=== PATIENT | female | born 1955 | race African-American/Black ===

== ENCOUNTER 2018-08-24 17:00 | Emergency (ER) | payer OTHER, BC ==
[2018-08-24 17:05] VITALS: BMI 36.9
--- NOTE | 2018-08-24 18:08 | PDOC ---
History of Present Illness - General Chief Complaint: Shortness of Breath Stated Complaint: DIFFICULTY BREATHING Time Seen by Provider: 08/24/18 17:38 - History of Present Illness Initial Comments: Julita Quiñones is a 63yo woman with a PMH of asthma, GERD, and chronic back pain who presents with 4 months of slightly increased SOB and mild pleuritic right lower chest pain. She reports that she has had asthma for many years, but she had a bad respiratory illness about 4 months ago, and she has been more SOB with walking than normal since that time. She was given an albuterol inhaler when seen in an OSH ED for the respiratory infection and referred to a revenue analyst, but she has been unable to see him yet. She has an appointment scheduled for 10 days from now. She uses her inhaler twice per day for SOB when walking to her car. Today, she had additional SOB when sitting in her car and was concerned. Ms Quiñones also reports that over the past 3-4 months she has had low right chest pain when she tries to take a very deep breath. The pain is located in both the front and the back. She mentioned it to her PMD and was told that it is due to her GERD. She has been taking vinegar and "digestive enzymes" at home for the reflux, but she states that it has been present for many years without any new changes. Her doctor told her to get a CXR, but she has not yet done so. Ms Quiñones denies any increased LE edema, weight gain, cough, fever/chills, wheezing, congestion, or any other recent symptoms. She has not been sick over the past 4 months. Past History - Past Medical History Allergies/Adverse Reactions: Allergies Allergy/AdvReac Type Severity Reaction Status Date / Time No Known Allergies Allergy Verified 08/24/18 17:05 Home Medications: Ambulatory Orders Albuterol Sulfate Inhaler - [Ventolin Hfa Inhaler -] 1 - 2 inh PO Q4H 08/24/18 Asthma: Yes COPD: No Other medical history: herniated discs - Suicide/Smoking/Psychosocial Hx Smoking History: Never smoked Substance Use Type: None Review of Systems - Review of Systems Comments:: General: No fevers, no chills, no weight or appetite change, no malaise HEENT: No changes in vision, no changes in hearing, no congestion, no sore throat CV: No chest pain, no palpitations, no LE edema Pulm: See HPI GI: No nausea or vomiting, no change in bowel habits, no melena : No frequency, no urgency, no dysuria Musc: No back pain, no joint swelling, no recent injury Skin: No rash, no lesions, no erythema Endo: No excessive thirst, no heat/cold intolerance Heme: No unusual bruising or bleeding, no swollen glands Neuro: No syncope, no numbness/tingling, no focal weakness Vasc: No claudication Psych: No recent change in mood, no SI or HI *Physical Exam - Vital Signs Last Vital Signs Temp Pulse Resp BP Pulse Ox 97.9 F 103 H 20 148/78 98 08/24/18 17:02 08/24/18 17:02 08/24/18 17:02 08/24/18 17:02 08/24/18 17:02 - Physical Exam Comments: General: Comfortable, no acute distress HEENT: PERRL, EOMI, MMM, voice normal, normal neck ROM, no LAD Cards: RRR, no murmur appreciated Pulm: Comfortable on room air, clear to auscultation bilaterally Abd: Soft, nontender, nondistended Ext: Atraumatic. No LE edema. ROM intact. Strength 5/5 and equal bilaterally Vasc: Extremities WWP Skin: Normal color, no rashes or lesions Neuro: A&Ox3, CN grossly intact, normal speech, motor/sensory grossly intact and symmetric Psych: Mood appropriate to situation ED Treatment Course - LABORATORY CBC & Chemistry Diagram: 08/24/18 14:22 08/24/18 14:22 - RADIOLOGY Radiology Studies Ordered: Category Date Time Status CHEST PA & LAT [RAD] Stat Radiology 08/24/18 18:07 Ordered Medical Decision Making - Medical Decision Making 08/24/18 18:09 Julita Quiñones is a 63yo woman with a PMH of asthma, GERD, and chronic back pain who presents with 4 months of slightly increased SOB and mild pleuritic right lower chest pain. She additionally reports abdominal bloating recently. - Benign exam. No abnormalities on lung exam. - CXR ordered to evaluate for abnormalities - Tachycardic on arrival. Will obtain EKG - Ddx includes GERD/gastritis, musculoskeletal pain, pancreatitis (reports taking digestive enzymes daily) - CBC, CMP, mag, phos, lipase, amylase 08/24/18 19:23 - Labs reviewed. Unremarkable. - EKG and CXR need to be completed. - Pt signed out to Dr Cruz for remainder of ED care. Discussed with Dr Quintero. Whitley Zarate PGY1 *DC/Admit/Observation/Transfer Diagnosis at time of Disposition: Mild shortness of breath - Referrals - Patient Instructions - Post Discharge Activity
--- NOTE | 2018-08-24 18:21 | PDOC ---
Attending Attestation - Resident Resident Name: Whitley Zarate - ED Attending Attestation I have performed the following: I have examined & evaluated the patient, The case was reviewed & discussed with the resident, I agree w/resident's findings & plan, Exceptions are as noted - HPI HPI: 08/24/18 18:47 63-year-old obese female presents today because of increased dyspnea. She has a long history of asthma and has had exertional dyspnea in the past. She chronically has to take her inhaler once in the morning and once in the evening because she has exertional dyspnea when she walks to her car. However, today she was just seated in her car and feeling like she was panting -her tanning consultant is She already has an appointment with her tanning consultant on August 03. she has a prescription for a chest radiograph and she came today to get an xray because her symptoms were worsening 08/24/18 18:59 - Physicial Exam PE: 08/24/18 19:27 63-year-old female presents in no acute distress. Head normocephalic/atraumatic. Neck supple, no bruits, no JVD. Lungs are clear to auscultation bilaterally CVS regular rate and rhythm S1, S2 Abdomen protuberant but nontender. Extremities no pitting edema. Skin is warm and dry. Psych appropriate. Neuro she is alert and oriented 3, ambulating with ease, no gross focal neural deficits. - Medical Decision Making 08/24/18 20:24 ekg nsr @ 86 bpm cxr no infiltrates,no ptx,no effusions appreciated labs reviewed 08/24/18 21:38 imp chronic intermittent dyspnea plan keep appt with tanning consultant
[2018-08-24 18:42] LABS: BASO % 0.7 % (0-2.0); EOS % 6.6 % (0-4.5); HEMATOCRIT 43.5 % (32.4-45.2); HEMOGLOBIN 14.1 GM/dL (10.7-15.3); LYMPH % 21.7 % (8-40); MCH 28.5 pg (25.7-33.7); MCHC 32.4 g/dl (32.0-36.0); MEAN CELL VOLUME 87.7 fl (80-96); MEAN PLT VOLUME 8.8 fl (7.5-11.1); MONO % 6.6 % (3.8-10.2); NEUT % 64.4 % (42.8-82.8); PLATELET COUNT 304 K/MM3 (134-434); RBC 4.96 M/mm3 (3.60-5.2); RDW 14.8 % (11.6-15.6); WHITE BLOOD COUNT 8.9 K/mm3 (4.0-10.0)
[2018-08-24 19:12] LABS: ALBUMIN 3.5 g/dl (3.4-5.0); ALK PHOS 120 U/L (45-117); AMYLASE 68 U/L (25-115); ANION GAP 6 MMOL/L (8-16); BILIRUBIN,TOTAL 0.3 mg/dL (0.2-1); BLOOD UREA NITROGEN 12 mg/dL (7-18); CALCIUM 9.5 mg/dL (8.5-10.1); CHLORIDE 106 mmol/L (98-107); CO2 28 mmol/L (21-32); GLUCOSE,RANDOM 106 mg/dL (74-106); LIPASE 141 U/L (73-393); MAGNESIUM 2.3 mg/dL (1.8-2.4); PHOSPHOROUS 3.3 mg/dL (2.5-4.9); POTASSIUM 4.2 mmol/L (3.5-5.1); SGOT/AST 18 U/L (15-37); SGPT/ALT 22 U/L (13-61); SODIUM 140 mmol/L (136-145); TOT PROT 7.3 g/dl (6.4-8.2)
--- NOTE | 2018-08-24 20:38 | PDOC ---
*Physical Exam - Vital Signs Last Vital Signs Temp Pulse Resp BP Pulse Ox 97.9 F 103 H 20 148/78 98 08/24/18 17:02 08/24/18 17:02 08/24/18 17:02 08/24/18 17:02 08/24/18 17:02 ED Treatment Course - LABORATORY CBC & Chemistry Diagram: 08/24/18 14:22 08/24/18 14:22 - ADDITIONAL ORDERS Additional order review: Laboratory Results 08/24/18 14:22 Sodium 140 Potassium 4.2 Chloride 106 Carbon Dioxide 28 Anion Gap 6 L BUN 12 Creatinine 1.0 Creat Clearance w eGFR 55.82 Random Glucose 106 Calcium 9.5 Phosphorus 3.3 Magnesium 2.3 Total Bilirubin 0.3 AST 18 ALT 22 Alkaline Phosphatase 120 H Creatine Kinase 163 Creatine Kinase Index 1.1 CK-MB (CK-2) 1.9 Troponin I < 0.02 Total Protein 7.3 Albumin 3.5 Total Amylase 68 Lipase 141 08/24/18 14:22 RBC 4.96 MCV 87.7 MCHC 32.4 RDW 14.8 MPV 8.8 Neutrophils % 64.4 Lymphocytes % 21.7 Monocytes % 6.6 Eosinophils % 6.6 H Basophils % 0.7 Medical Decision Making - Medical Decision Making Patient Signed out to me from Dr. Zarate pending chest x-ray. CXR performed and not suggestive of infiltrate or effusion. Will DC patient and have her follow up with her cutting torch operator. - Providing patient with a CD of her x-ray and her labwork. *DC/Admit/Observation/Transfer Diagnosis at time of Disposition: Mild shortness of breath - Discharge Dispostion Disposition: HOME Condition at time of disposition: Stable Decision to Admit order: No - Referrals Referrals: Mary Cagle [Non Staff, Medical] - - Patient Instructions Printed Discharge Instructions: DI for Shortness of Breath Additional Instructions: Please make sure to follow up with your cutting torch operator. We are providing you with a copy of your X-ray CT to show your cutting torch operator. Please make sure to come back to the ER if your pain worsens or you have any other new or worsening complaints. thank you for [facility] to [facility]. We hope you feel better soon! Print Language: TURKISH - Post Discharge Activity
[2018-08-24 20:56] VITALS: BP 137/83; PULSE 82; TEMP 98.1
--- NOTE | 2018-08-25 09:58 | EKG ---
Test Reason : Blood Pressure : / mmHG Vent. Rate : 086 BPM Atrial Rate : 086 BPM P-R Int : 152 ms QRS Dur : 080 ms QT Int : 354 ms P-R-T Axes : 062 014 040 degrees QTc Int : 423 ms NORMAL SINUS RHYTHM POSSIBLE LEFT ATRIAL ENLARGEMENT BORDERLINE ECG NO PREVIOUS ECGS AVAILABLE Confirmed by SAMMY FAIRCHILD, VÍCTOR ([id number]) on 08/25/2018 9:58:32 AM Referred By: Confirmed By:VÍCTOR CHRISTIANSON MD
== END 2018-08-24 20:56 | disposition home or self-care (01) ==
LOC: JER 17:00
DX: R06.09 Other forms of dyspnea (principal); J45.909 Unspecified asthma, uncomplicated; K21.9 Gastro-esophageal reflux disease without esophagitis; M54.9 Dorsalgia, unspecified; G89.29 Other chronic pain
CPT/HCPCS: 36415; 71046-TC-FY; 80053; 82150; 82550; 82553; 83690; 83735; 84100; 84484; 85025; 93005; 93010; 99283-25